=== PATIENT | female | born 1995 | race Caucasian/White ===

== ENCOUNTER 2017-03-26 20:57 | Emergency (ER) | payer OTHER ==
[2017-03-26 21:03] VITALS: BP 116/64
[2017-03-26] MEDS ORDERED: IBUPROFEN 400 MG TABLET PO STA (21:08)
[2017-03-26] MEDS ORDERED: DEXAMETHASONE 10 MG/ML VIAL PO STA (21:08)
[2017-03-26] MEDS ORDERED: BENZONATATE 100 MG CAPSULE PO STA (21:09)
[2017-03-26] MEDS ORDERED: IBUPROFEN 400 MG TABLET PO ONE (21:09)
[2017-03-26] MEDS ORDERED: CHERRY SYRUP 10 ML UDC PO ONE (21:09)
[2017-03-26] MEDS ORDERED: DEXAMETHASONE 10 MG/ML VIAL ONE (21:10)
--- NOTE | 2017-03-26 21:12 | ED Physician Documentation ---
PD HPI HEENT - Stated complaint Stated Complaint: THROAT PX - Chief complaint Chief Complaint: Heent - History obtained from History obtained from: Patient - History of Present Illness Timing - onset: Yesterday Timing - details: Gradual onset, Still present Location: Throat Worsens: Swalllowing Associated symptoms: Cough. No: Fever, Congestion, Swollen nodes Similar symptoms before: No diagnosis Recently seen: Not recently seen - Additional information Additional information: Patient is a 21 year old female with no significant past medical history who is presenting to the emergency department for sore throat and cough. patient states that the symptoms started yesterday and they have become progressively worse today. patient denies fever, chills or ear pain but does state that she has a cough. Review of Systems Constitutional: denies: Fever, Chills Eyes: denies: Photophobia, Discharge, Irritation Ears: denies: Ear pain Nose: reports: Congestion. denies: Rhinorrhea / runny nose Throat: reports: Oral lesions / sores. denies: Dental pain / toothache Cardiac: denies: Chest pain / pressure Respiratory: reports: Cough. denies: Dyspnea, Wheezing GI: denies: Nausea, Vomiting : denies: Dysuria, Frequency Musculoskeletal: denies: Neck pain, Back pain, Extremity pain Neurologic: denies: Generalized weakness, Focal weakness Immunocompromised: denies: Immunocompromised PD PAST MEDICAL HISTORY - Past Medical History Past Medical History: No - Past Surgical History Past Surgical History: No - Present Medications Home Medications: Ambulatory Orders Medication Instructions Recorded Confirmed Cetirizine HCl/Pseudoephedrine 1 each PO BID PRN #30 tab.er.12h 07/04/16 [Zyrtec-D Tablet] Ibuprofen [Motrin] 800 mg PO Q8H PRN #30 tablet 07/04/16 Benzonatate [Tessalon Perle] 100 mg PO TID PRN #15 capsule 03/26/17 - Allergies Allergies/Adverse Reactions: Allergies Allergy/AdvReac Type Severity Reaction Status Date / Time No Known Drug Allergies Allergy Verified 03/26/17 21:02 - Social History Does the pt smoke?: No Smoking Status: Former smoker Does the pt drink ETOH?: No Does the pt have substance abuse?: No - Immunizations Immunizations are current?: Yes - POLST Patient has POLST: No PD ED PE NORMAL - Vitals Vital signs reviewed: Yes - General General: Alert and oriented X 3, No acute distress - HEENT HEENT: Atraumatic, PERRL - Neck Neck: Supple, no meningeal sign - Cardiac Cardiac: RRR, No murmur - Respiratory Respiratory: No respiratory distress, Clear bilaterally - Abdomen Abdomen: Soft, Non distended - Derm Derm: Normal color, Warm and dry, No rash - Extremities Extremities: No deformity, No edema - Neuro Neuro: Alert and oriented X 3, No motor deficit, No sensory deficit, Normal speech - Psych Psych: Normal mood, Normal affect PD ED PE EXPANDED - HEENT HEENT: Atraumatic, PERRL, Ears normal, Moist mucous membranes, Pharyngeal erythema. No: Swollen tonsils, Tonsillar exudate Results - Vitals Vitals: Vital Signs - 24 hr 03/26/17 21:00 Temperature 36 C L Heart Rate 67 Respiratory 17 Rate Blood Pressure 116/64 O2 Saturation 100 Oxygen O2 Source Room air - Labs Labs: Laboratory Tests 03/26/17 21:03 Group A Strep Rapid Negative PD MEDICAL DECISION MAKING - ED course Complexity details: reviewed results, re-evaluated patient, considered differential, d/w patient ED course: Patient was seen and examined at bedside. patient's vital signs were within normal limits. rapid strep was performed. Patient was treated with ibuprofen, decadron and tessalon perle. Patient's throat swab was negative. Patient's symptoms were likely viral in nature. Patient was well appearing and stable for discharge with outpatient follow up. Departure - Departure Disposition: 01 Home, Self Care Clinical Impression: Pharyngitis Condition: Good Instructions: ED Pharyngitis Viral Follow-Up: primary,care provider [Other] - Within 1 week (if symptoms persist.) Prescriptions: Benzonatate [Tessalon Perle] 100 mg PO TID PRN #15 capsule PRN Reason: Cough Comments: Your diagnostics today were within normal limits. Your symptoms are likely viral in nature and should get better over the next few days. You can use over the counter lozenges as needed as well as motrin or tylenol for pain. You should follow up with your pmd if your symptoms persist for more than a week. You may return to the emergency department at any time for new, worsening or uncontrollable symptoms.
[2017-03-26] MEDS ORDERED: BENZONATATE 100 MG CAPSULE PO ONE (21:13)
[2017-03-26 21:30] LABS: RAPID STREP SCREEN REAGENT QC YELLOW (YELLOW)
== END 2017-03-26 21:39 | disposition home or self-care (01) ==
LOC: ED 20:57
DX: J02.9 Acute pharyngitis, unspecified (principal); Z87.891 Personal history of nicotine dependence
CPT/HCPCS: 87070; 87430; 99283; A9270

== ENCOUNTER 2017-03-28 14:49 | Emergency (ER) | payer OTHER ==
--- NOTE | 2017-03-28 14:57 | ED Physician Documentation ---
PD HPI URI - Stated complaint Stated Complaint: THROAT/EAR PX - Chief complaint Chief Complaint: Heent - History obtained from History obtained from: Patient - History of Present Illness Timing - onset: How many days ago (few) Timing duration: Days (few) Timing details: Gradual onset, Still present (had onset of throat pain and seen at [facility], given Motrin and Cepacol. Pain worsening and having some fevers too. Here for eval as getting worse and [facility] not open today.) Associated symptoms: Fever, Sore throat, Swollen nodes, Dry cough. No: Nasal congestion, Productive cough, Chest pain, NVD Similar symptoms before: Diagnosis (strep throat a year ago, felt similar.) Recently seen: Clinic (2 days ago but is worse since that time.) Review of Systems Constitutional: reports: Fever, Chills Nose: denies: Rhinorrhea / runny nose, Congestion Throat: reports: Sore throat Respiratory: reports: Cough GI: denies: Abdominal Pain, Nausea, Vomiting, Diarrhea PD PAST MEDICAL HISTORY - Past Medical History Cardiovascular: None Neuro: None Endocrine/Autoimmune: None HEENT: None, Other (strep throat about a year ago) - Past Surgical History Past Surgical History: No - Present Medications Home Medications: Ambulatory Orders Medication Instructions Recorded Confirmed Amoxicillin 500 mg PO TID #20 capsule 03/28/17 Dexamethasone [Decadron] 4 mg PO DAILY #5 tablet 03/28/17 Tramadol HCl 50 mg PO Q6H PRN #15 tablet 03/28/17 - Allergies Allergies/Adverse Reactions: Allergies Allergy/AdvReac Type Severity Reaction Status Date / Time No Known Drug Allergies Allergy Verified 03/26/17 21:02 - Social History Does the pt smoke?: No Smoking Status: Former smoker Does the pt drink ETOH?: No Does the pt have substance abuse?: No - Immunizations Immunizations are current?: Yes - POLST Patient has POLST: No PD ED PE NORMAL - Vitals Vital signs reviewed: Yes - General General: Alert and oriented X 3, No acute distress, Well developed/nourished - HEENT HEENT: No: Pharynx benign (tonsils red and swollen with some spotty exudate. No peritonsillar swelling. ) - Neck Neck: Supple, no meningeal sign, Other (anterior adenopathy both sides. ) - Cardiac Cardiac: RRR, No murmur - Respiratory Respiratory: Clear bilaterally - Derm Derm: Normal color, Warm and dry, No rash - Neuro Neuro: Alert and oriented X 3, No motor deficit, Normal speech Results - Vitals Vitals: Oxygen O2 Source Room air - Labs Labs: Microbiology 03/28/17 15:07 Group A Strep Throat Culture - Preliminary Throat Laboratory Tests 03/28/17 15:07 Group A Strep Rapid Negative PD MEDICAL DECISION MAKING - ED course Complexity details: considered differential (symptoms and exam are very suspicious for strep with 3/4 on Centor, so will empirically treat pening the culture results. ), d/w patient Departure - Departure Disposition: Home, Self Care Clinical Impression: Pharyngitis Qualifiers: Pharyngitis/tonsillitis etiology: unspecified etiology Qualified Code(s): J02.9 - Acute pharyngitis, unspecified Condition: Stable Record reviewed to determine appropriate education?: Yes Instructions: ED Strep Pharyngitis Poss Follow-Up: [facility]kedar Rosales [Provider Group] Prescriptions: Amoxicillin 500 mg PO TID #20 capsule Dexamethasone [Decadron] 4 mg PO DAILY #5 tablet Tramadol HCl 50 mg PO Q6H PRN #15 tablet PRN Reason: Pain Comments: The rapid strep test is negative, but it looks suspicious, so will treat it as strep throat pending the culture results in 2-3 days. Amoxicillin three times daily as directed. Decadron for inflammation. Continue the Ibuprofen and Cepacol. Add Tylenol or Tramadol as needed for pain. Follow up PMD if not improved over the next few days. Discharge Date/Time: 03/28/17 15:58
[2017-03-28] MEDS ORDERED: AMOXICILLIN 250 MG CAPSULE PO STA (15:06)
[2017-03-28] MEDS ORDERED: ACETAMINOPHEN 325 MG TABLET PO STA (15:06)
[2017-03-28] MEDS ORDERED: DEXAMETHASONE 10 MG/ML VIAL PO STA (15:06)
[2017-03-28] MEDS ORDERED: AMOXICILLIN 250 MG CAPSULE PO ONE (15:12)
[2017-03-28] MEDS ORDERED: DEXAMETHASONE 10 MG/ML VIAL ONE (15:13)
[2017-03-28] MEDS ORDERED: ACETAMINOPHEN 325 MG TABLET PO ONE (15:13)
[2017-03-28] MEDS ORDERED: CHERRY SYRUP 10 ML UDC PO ONE (15:13)
[2017-03-28 15:33] LABS: RAPID STREP SCREEN REAGENT QC YELLOW (YELLOW)
[2017-03-28 16:00] VITALS: BP 98/58
== END 2017-03-28 15:58 | disposition home or self-care (01) ==
LOC: ED 14:49
DX: J02.9 Acute pharyngitis, unspecified (principal); Z87.891 Personal history of nicotine dependence
CPT/HCPCS: 87070; 87430; 99283; A9270

== ENCOUNTER 2018-02-18 19:16 | Emergency (ER) | payer OTHER ==
[2018-02-18] MEDS ORDERED: DEXAMETHASONE 10 MG/ML VIAL PO STA (19:53)
[2018-02-18] MEDS ORDERED: CETIRIZINE 10 MG TABLET PO STA (19:54)
[2018-02-18] MEDS ORDERED: PENICILLIN VK 250 MG TABLET PO STA (20:14)
--- NOTE | 2018-02-18 20:14 | ED Physician Documentation ---
History of Present Illness - Stated complaint Stated Complaint: EAR PX/DIZZINESS - Chief complaint Chief Complaint: Heent - History obtained from History obtained from: Patient - History of Present Illness Timing: Yesterday Pain level max: 7 Pain level now: 7 Improved by: motrin Worsened by: swallowing, cold air, movement. - Additonal information Additional information: Patient is a 22-year-old female who presents to the emergency department 2 days of rhinorrhea, nasal congestion, sore throat and right ear pain. Seen earlier today at the [facility] for same, diagnosed with otitis externa and started on Ciprodex. States the pain is worsening tonight. Review of Systems Constitutional: denies: Fever, Chills Ears: reports: Ear pain Nose: reports: Rhinorrhea / runny nose, Congestion Throat: reports: Sore throat Respiratory: denies: Cough GI: denies: Abdominal Pain, Nausea, Vomiting, Diarrhea : denies: Now EGA Skin: denies: Rash Musculoskeletal: denies: Neck pain, Back pain Neurologic: denies: Headache PD PAST MEDICAL HISTORY - Past Medical History Past Medical History: Yes Cardiovascular: None Neuro: None Endocrine/Autoimmune: None HEENT: None - Past Surgical History Past Surgical History: No - Present Medications Home Medications: Ambulatory Orders Medication Instructions Recorded Confirmed Hydrocodone/Acetaminophen 1 - 2 each PO Q6H PRN #10 tablet 02/18/18 [Hydrocodon-Acetaminophen 5-325] Penicillin V Potassium 500 mg PO Q6HR #40 tablet 02/18/18 - Allergies Allergies/Adverse Reactions: Allergies Allergy/AdvReac Type Severity Reaction Status Date / Time No Known Drug Allergies Allergy Verified 02/18/18 19:24 - Social History Does the pt smoke?: No Smoking Status: Never smoker Does the pt drink ETOH?: No Does the pt have substance abuse?: No - Immunizations Immunizations are current?: Yes - POLST Patient has POLST: No PD ED PE NORMAL - Vitals Vital signs reviewed: Yes - General General: Alert and oriented X 3, No acute distress - HEENT HEENT: PERRL, Moist mucous membranes, Other (Right tympanic membrane is retracted. No fluid present. Posterior oropharynx has tonsillar exudates, uvula midline. Normal phonation. No trismus.) - Neck Neck: Supple, no meningeal sign, Other (shotty anterior Lymphadenopathy) - Cardiac Cardiac: RRR - Respiratory Respiratory: No respiratory distress, Clear bilaterally - Abdomen Abdomen: Soft, Non tender, Non distended - Derm Derm: Warm and dry - Neuro Neuro: Alert and oriented X 3 - Psych Psych: Normal mood, Normal affect Results - Vitals Vitals: Vital Signs - 24 hr 02/18/18 02/18/18 02/18/18 19:23 20:02 20:19 Temperature 37.3 C 36.7 C Heart Rate 127 H 101 H Respiratory 18 18 Rate Blood Pressure 101/68 117/70 O2 Saturation 97 98 Oxygen O2 Source Room air - Labs Labs: Laboratory Tests 02/18/18 19:45 Group A Strep Rapid Negative PD MEDICAL DECISION MAKING - ED course Complexity details: reviewed results, re-evaluated patient, considered differential, d/w patient ED course: Patient is a 22-year-old female who presents to the emergency department with a retracted right eardrum, likely secondary to eustachian tube dysfunction from her infection. Appears to have streptococcal pharyngitis clinically. She is well-appearing, nontoxic. Rapid strep is negative, but given the poor clinical sensitivity and specificity, Will treat clinically. Throat culture was also sent. Patient counseled regarding signs and symptoms for which I believe and urgent re-evaluation would be necessary. Patient with good understanding of and agreement to plan and is comfortable going home at this time This document was made in part using voice recognition software. While efforts are made to proofread this document, sound alike and grammatical errors may occur. Given dexamethasone in the emergency department as well. Departure - Departure Disposition: 01 Home, Self Care Clinical Impression: Viral URI Pharyngitis Qualifiers: Pharyngitis/tonsillitis etiology: unspecified etiology Qualified Code(s): J02.9 - Acute pharyngitis, unspecified Condition: Good Instructions: ED Strep Pharyngitis Poss Follow-Up: JAGJIT TIERNEY [Primary Care Provider] - Within 1 week Prescriptions: Penicillin V Potassium 500 mg PO Q6HR #40 tablet Hydrocodone/Acetaminophen [Hydrocodon-Acetaminophen 5-325] 1 - 2 each PO Q6H PRN #10 tablet PRN Reason: pain Comments: Drink plenty of fluids and rest. Return if you worsen. Do not drink alcohol or drive while on narcotic pain medicine. Note that many narcotic pain relievers also contain tylenol/acetaminophen. Please ensure that your total dose of acetaminophen from all sources does not exceed 3 grams (3000mg) per day. You may constipated on this medication, take a stool softener such as "Colace" twice a day while you are on it. Also recommend a [id number] laxative such as senna or MiraLAX any day that you do not have a bowel movement. If you received narcotic pain medication in the emergency department, do not drive or operate machinery for the next 24 hours. Forms: Activity restrictions Discharge Date/Time: 02/18/18 20:26
[2018-02-18 20:23] VITALS: BP 117/70
== END 2018-02-18 20:26 | disposition home or self-care (01) ==
LOC: ED 19:16
DX: J06.9 Acute upper respiratory infection, unspecified (principal); B97.89 Other viral agents as the cause of diseases classified elsewhere
CPT/HCPCS: 87070; 87430; 99283; A9270